=== PATIENT | female | born 1990 | race Caucasian/White ===

== ENCOUNTER 2019-01-05 17:58 | Inpatient (IN) ==
[2019-01-05] MEDS ORDERED: BRETHINE SUBQ PRN (18:01)
[2019-01-05] MEDS ORDERED: AMBIEN PO PRN (18:01)
[2019-01-05] MEDS ORDERED: PEPCID PO ONE (18:01)
[2019-01-05] MEDS ORDERED: STADOL IV PRN ×4 (18:01→18:45)
[2019-01-05] MEDS ORDERED: TYLENOL PO PRN (18:01)
[2019-01-05] MEDS ORDERED: KEFZOL 1 GM/D5W 1 GM/50 ML IVPB IV PRN (18:01)
[2019-01-05] MEDS ORDERED: PEPCID PO PRN (18:01)
[2019-01-05] MEDS ORDERED: ZOFRAN IV PRN (18:01)
[2019-01-05] MEDS ORDERED: LR 1,000 ML IV ONE (18:01)
[2019-01-05] MEDS ORDERED: REGLAN PO ONE (18:01)
[2019-01-05] MEDS ORDERED: PEPCID IV PRN (18:01)
[2019-01-05] MEDS ORDERED: FENTANYL IV PRN (18:17)
[2019-01-05 18:42] LABS: UR AMPHETAMINES QUAL NONE DETECTED (NONE DETECT); UR BARBITUATES QUAL NONE DETECTED (NONE DETECT); UR BENZODIAZEPIN QUAL NONE DETECTED (NONE DETECT); UR CANNABINOIDS QUAL NONE DETECTED (NONE DETECT); UR COCAINE QUAL NONE DETECTED (NONE DETECT); UR METHADONE QUAL NONE DETECTED (NONE DETECT); UR METHAMPHETAMINE QUAL NONE DETECTED (NONE DETECT); UR OPIATES QUAL NONE DETECTED (NONE DETECT); UR OXYCODONE QUAL NONE DETECTED (NONE DETECT); UR PCP QUAL NONE DETECTED (NONE DETECT); UR PROPOXYPHENE QUAL NONE DETECTED (NONE DETECT); UR TCA QUAL NONE DETECTED (NONE DETECT)
[2019-01-05 19:10] LABS: BASO# 0.02 X1000 (0.0-0.2); BASO% 0.2 % (0.0-0.8); EOS% 0.8 % (0.0-10.0); HEMATOCRIT 29.9 % (37.0-47.0); HEMOGLOBIN 9.5 g/dL (12.0-16.0); IMM GRAN# 0.07 X1000 (0.0-0.04); IMM GRAN% 0.6 % (0.0-0.5); LYMPH# 2.41 X1000 (1.2-3.4); LYMPH% 19.6 % (20.5-51.1); MCH 27.6 PG (27-31); MCHC 31.8 g/dL (33-37); MCV 86.9 FL (81-99); MONO# 1.02 X1000 (0.11-0.59); MONO% 8.3 % (1.7-9.3); NEUT# 8.68 X1000 (1.4-6.5); NEUT% 70.5 % (42.2-75.2); PLT 145 X1000 (130-400); RBC 3.44 XMIL (4.2-5.4); RDW 13.8 % (11.5-14.5)
[2019-01-05 19:47] LABS: URINE SOURCE VOIDED
[2019-01-05 19:59] LABS: BILIRUBIN URINE NEGATIVE (NEGATIVE); BLOOD URINE 1+ (NEGATIVE); CLARITY VERY CLOUDY (CLEAR); COLOR YELLOW; GLUCOSE URINE NEGATIVE (NEGATIVE); KETONE URINE TRACE mg/dL (NEGATIVE); LEUKOCYTES URINE 2+ (NEGATIVE); NITRITE URINE NEGATIVE (NEGATIVE); PH URINE 6.5; PROTEIN URINE TRACE mg/dL (NEGATIVE); UROBILINOGEN URINE 1 mg/dL
[2019-01-05] MEDS ORDERED: CYTOTEC PO SCH (20:00)
[2019-01-05] MEDS ORDERED: PITOCIN 30 UNITS/NS 30 UNIT/500 ML IV.SOLN IV SCH (20:00)
[2019-01-05 20:29] LABS: LARGE PLATELETS 1+; LYMPHS 20 % (21-51); MONO 5 % (1-9); SEGS 72 % (42-75)
[2019-01-05] MEDS ORDERED: NAROPIN 0.2% INJ ONE (21:01)
[2019-01-05] MEDS ORDERED: MINERAL OIL MISC ONE (21:01)
[2019-01-05] MEDS ORDERED: XYLOCAINE-MPF 1% INJ ONE (21:02)
[2019-01-05] MEDS ORDERED: FENTANYL-BUPIV-NS 2 MCG-0.1% 200 ML EPIDURAL SCH (22:30)
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
[2019-01-06] MEDS ORDERED: PHENERGAN IV ONE (05:06)
[2019-01-06] MEDS ORDERED: SODIUM CHLORIDE 0.9% INJ ONE (05:06)
--- NOTE | 2019-01-06 06:35 | OB/GYN PROGRESS NOTE ---
Progress Note OB - . Patient Problems: Current Active Problems Problem Status Onset Elective induction of labor planned Acute OB Progress Note: Vital Signs - 24 hr 01/05/19 20:00 01/06/19 00:00 01/06/19 03:54 Temperature 96.9 F L 97.0 F L 97.2 F L Pulse Rate 80 71 68 Respiratory Rate 18 18 18 Blood Pressure 111/61 108/61 105/59 Laboratory Results - last 24 hr 01/05/19 01/05/19 01/05/19 18:15 18:23 18:25 WBC RBC Hgb Hct MCV MCH MCHC RDW Std Deviation Plt Count MPV Immature Gran % (Auto) Neut % (Auto) Lymph % (Auto) [place] % (Auto) Eos % (Auto) Baso % (Auto) Immature Gran # (Auto) Neut # (Auto) Lymph # (Auto) [place] # (Auto) Eos # (Auto) Baso # (Auto) Segmented Neutrophils Lymphocytes Monocytes Atypical Lymphocytes Large Platelets Urine Source VOIDED Urine Color YELLOW Urine Clarity VERY CLOUDY A Urine pH 6.5 Ur Specific [place] 1.020 Urine Protein TRACE A Urine Ketones TRACE Urine Blood 1+ A Urine Nitrite NEGATIVE Urine Bilirubin NEGATIVE Urine Urobilinogen 1 Urine WBC 2+ A Urine Glucose NEGATIVE Urine Opiates Screen NONE DETECTED Ur Oxycodone Screen NONE DETECTED Urine Methadone Screen NONE DETECTED U Propoxyphene Qual NONE DETECTED Ur Barbituates Screen NONE DETECTED Ur Tricyclics Screen NONE DETECTED Ur Phencyclidine Scrn NONE DETECTED Ur Amphetamines Screen NONE DETECTED U Methamphetamines Scrn NONE DETECTED U Benzodiazepines Scrn NONE DETECTED Urine Cocaine Screen NONE DETECTED U Cannabinoids Screen NONE DETECTED RPR NON-REACTIVE Blood Type Antibody Screen 01/05/19 01/05/19 18:25 18:25 WBC 12.30 H RBC 3.44 L Hgb 9.5 L Hct 29.9 L MCV 86.9 MCH 27.6 MCHC 31.8 L RDW Std Deviation 13.8 Plt Count 145 MPV Not Reportable Immature Gran % (Auto) 0.6 H Neut % (Auto) 70.5 Lymph % (Auto) 19.6 L [place] % (Auto) 8.3 Eos % (Auto) 0.8 Baso % (Auto) 0.2 Immature Gran # (Auto) 0.07 H Neut # (Auto) 8.68 H Lymph # (Auto) 2.41 [place] # (Auto) 1.02 H Eos # (Auto) 0.10 Baso # (Auto) 0.02 Segmented Neutrophils 72 Lymphocytes 20 L Monocytes 5 Atypical Lymphocytes 3.0 Large Platelets 1+ Urine Source Urine Color Urine Clarity Urine pH Ur Specific [place] Urine Protein Urine Ketones Urine Blood Urine Nitrite Urine Bilirubin Urine Urobilinogen Urine WBC Urine Glucose Urine Opiates Screen Ur Oxycodone Screen Urine Methadone Screen U Propoxyphene Qual Ur Barbituates Screen Ur Tricyclics Screen Ur Phencyclidine Scrn Ur Amphetamines Screen U Methamphetamines Scrn U Benzodiazepines Scrn Urine Cocaine Screen U Cannabinoids Screen RPR Blood Type O POSITIVE Antibody Screen NEGATIVE S: Patient resting comfortably O: SVE at 0500: 4/90/-1 FHTs: 150s, moderate variability, accels present; 1 late decel noted at about 0535 [place]: contractions q2-5 min A&P: 28yo G2, P1-0-0-1 at 39 weeks and 2 day with: 1. Term -eIOL - well being: Cat 1 tracings now -Anticipate 2. Anemia (hemoglobin 9.5, hematocrit 29.9). 3. Rubella non-immune. -MMR to be given . 4. Patient desires permanent sterilization.
[2019-01-06] MEDS ORDERED: AMPICILLIN 2 GM/NS 2 GM/100 ML IVPB IV ONE (07:35)
[2019-01-06] MEDS ORDERED: CLINDAMYCIN 900 MG/D5W 900 MG/50 ML IVPB IV ONE (07:36)
[2019-01-06] MEDS ORDERED: NAROPIN 0.5% ONE (07:43)
[2019-01-06] MEDS ORDERED: PITOCIN 30 UNITS/NS 30 UNIT/500 ML IV.SOLN IV SCH (08:00)
[2019-01-06] MEDS: PITOCIN 30 UNITS/NS 30 UNIT/500 ML IV.SOLN IV SCH ×2 (09:56→12:49)
[2019-01-06] MEDS ORDERED: BENADRYL PO PRN (10:22)
[2019-01-06] MEDS ORDERED: BENADRYL IV PRN (10:22)
[2019-01-06] MEDS ORDERED: M-M-R II VACCINE SUBQ ONE (10:22)
[2019-01-06] MEDS ORDERED: PERI MEDS (DERMOPLAST/NUPERCAINAL/TUCKS) MISC PRN (10:22)
[2019-01-06] MEDS ORDERED: BOOSTRIX VACCINE IM ONE (10:22)
[2019-01-06] MEDS ORDERED: AMBIEN PO PRN (10:22)
[2019-01-06] MEDS ORDERED: MINERAL OIL PO PRN (10:22)
[2019-01-06] MEDS ORDERED: XYLOCAINE-MPF 1% INJ PRN (10:22)
[2019-01-06] MEDS ORDERED: CYTOTEC PO PRN (10:22)
[2019-01-06] MEDS ORDERED: NORCO-10 PO PRN (10:22)
[2019-01-06] MEDS ORDERED: ATARAX PO PRN (10:22)
[2019-01-06] MEDS ORDERED: PITOCIN IM PRN (10:22)
[2019-01-06] MEDS ORDERED: HYDROXYZINE IM PRN (10:22)
[2019-01-06] MEDS ORDERED: NORCO-5 PO PRN (10:22)
[2019-01-06] MEDS ORDERED: PITOCIN 20 UNITS/NS 20 UNITS/1,000 ML IV.SOLN IV SCH (10:30)
--- NOTE | 2019-01-06 11:47 | OPERATIVE NOTE ---
PROCEDURE DATE: 01/06/2019 VAGINAL DELIVERY NOTE: Patient progressed to complete and pushing and had spontaneous vaginal delivery of a female infant, 6 pounds 8 ounces with Apgars of 9 and 10 at 0954 on 01/06/2019 over a second-degree midline episiotomy and periurethral lacerations on the left and right sides. The placenta was delivered intact with 3-vessel cord. The cord blood sample was obtained at this time. The second-degree midline episiotomy was repaired with 2-0 and 3-0 chromic. The periurethral lacerations were repaired with 3-0 Vicryl in a running fashion times 1 on each side. ESTIMATED BLOOD LOSS: 250 mL. ANESTHESIA: Epidural. COUNTS: All counts were correct times 2. cc: Alfred White III, MD
[2019-01-06] MEDS: MOTRIN PO PRN ×2 (12:48→20:52)
[2019-01-06] MEDS ORDERED: PERICOLACE PO SCH (21:00)
[2019-01-07] MEDS: PITOCIN 30 UNITS/NS 30 UNIT/500 ML IV.SOLN IV SCH (00:02)
[2019-01-07 06:35] LABS: BASO# 0.03 X1000 (0.0-0.2); BASO% 0.2 % (0.0-0.8); EOS# 0.17 X1000 (0.0-0.7); EOS% 0.9 % (0.0-10.0); HEMATOCRIT 30.6 % (37.0-47.0); HEMOGLOBIN 9.6 g/dL (12.0-16.0); IMM GRAN# 0.12 X1000 (0.0-0.04); IMM GRAN% 0.6 % (0.0-0.5); LYMPH% 16.3 % (20.5-51.1); MCH 27.6 PG (27-31); MCHC 31.4 g/dL (33-37); MCV 87.9 FL (81-99); MONO# 1.05 X1000 (0.11-0.59); MONO% 5.3 % (1.7-9.3); MPV 12.3 FL (7.4-10.4); NEUT% 76.7 % (42.2-75.2); PLT 150 X1000 (130-400); RBC 3.48 XMIL (4.2-5.4); RDW 14.1 % (11.5-14.5); WBC 19.67 X1000 (4.8-10.8)
[2019-01-07] MEDS: MOTRIN PO PRN ×2 (06:38→16:32)
--- NOTE | 2019-01-07 09:29 | OB/GYN PROGRESS NOTE ---
Progress Note OB - . Patient Problems: Current Active Problems Problem Status Onset (spontaneous vaginal delivery) Acute OB Progress Note: Vital Signs - 24 hr 01/06/19 10:15 01/06/19 10:25 01/06/19 10:35 Temperature 98.5 F Pulse Rate 79 96 H 74 Respiratory Rate 20 20 18 Blood Pressure 113/57 Blood Pressure [Right Arm] 113/57 108/56 105/58 O2 Sat by Pulse Oximetry 100 100 97 01/06/19 10:45 01/06/19 10:55 01/06/19 11:05 Temperature Pulse Rate 78 67 71 Respiratory Rate 20 20 20 Blood Pressure Blood Pressure [Right Arm] 110/62 109/62 105/69 O2 Sat by Pulse Oximetry 98 96 100 01/06/19 11:15 01/06/19 14:30 01/06/19 15:30 Temperature 97.8 F 97.2 F L Pulse Rate 77 84 80 Respiratory Rate 20 20 20 Blood Pressure 111/66 99/55 107/54 Blood Pressure [Right Arm] 111/66 O2 Sat by Pulse Oximetry 97 97 98 01/06/19 20:15 01/06/19 23:55 01/07/19 08:16 Temperature 96.7 F L 96.7 F L 96.5 F L Pulse Rate 78 87 88 Respiratory Rate 18 18 16 Blood Pressure 104/56 103/55 117/55 Blood Pressure [Right Arm] O2 Sat by Pulse Oximetry 99 95 98 Laboratory Results - last 24 hr 01/07/19 06:18 WBC 19.67 H RBC 3.48 L Hgb 9.6 L Hct 30.6 L MCV 87.9 MCH 27.6 MCHC 31.4 L RDW Std Deviation 14.1 Plt Count 150 MPV 12.3 H Immature Gran % (Auto) 0.6 H Neut % (Auto) 76.7 H Lymph % (Auto) 16.3 L [place] % (Auto) 5.3 Eos % (Auto) 0.9 Baso % (Auto) 0.2 Immature Gran # (Auto) 0.12 H Neut # (Auto) 15.10 H Lymph # (Auto) 3.20 [place] # (Auto) 1.05 H Eos # (Auto) 0.17 Baso # (Auto) 0.03 S: Patient without complaints. Denied fever, chills, N/V, SOB, or chest pain. Some abdominal cramping, but minimal and controlled. Voiding without difficulty. Lochia decreasing; scant. Breast-feeding without difficulty. Desires permanent sterilization. O: Gen: NAD CV: RRR Pulm: CTAB; no rhonchi, wheezing, or rales Abd: soft, non-tender to palpation; non-distended; fundus firm and below umbilicus Ext: no LE TTP A&P: 28yo s/p at 39 weeks and 2 day: 1. PPD#1- No concerns -Cont. routine care 2. Anemia -Cont vitamin and iron 3. Rubella non-immune -MMR booster 4. Patient desires permanent sterilization.
[2019-01-08] MEDS: MOTRIN PO PRN ×2 (02:30→10:48)
[2019-01-08 08:03] VITALS: BP 111/75
--- NOTE | 2019-01-08 09:36 | DISCHARGE SUMMARY ---
ADMISSION DATE: 01/05/2019 DISCHARGE DATE: 01/08/2019 ADMISSION DIAGNOSIS: A 28-year-old white female, IUP 39 and 1/7 weeks for elective induction of labor. Obstetrical course unremarkable. The patient has expressed desire for permanent sterilization. FINAL DIAGNOSIS: A 28-year-old white female, IUP 39 and 1/7 weeks for elective induction of labor. Obstetrical course unremarkable. The patient has expressed desire for permanent sterilization with spontaneous vaginal delivery of a female infant, 6 pounds 8 ounces with Apgars of 9 and 10 at 0954 on 01/06/2019 over a second-degree midline episiotomy. PROCEDURES: Spontaneous vaginal delivery. BRIEF HISTORY: Patient is a 28-year-old white female, G2, P1, at 39 and 1/7ths weeks by a 20 week ultrasound scan who presents for elective induction of labor. No obstetrical problems during her course and she did express a desire for permanent sterilization. PAST MEDICAL HISTORY: Significant for anemia. PAST SURGICAL HISTORY: None. PAST OB HISTORY: G2, P1 spontaneous vaginal delivery x1. 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 Denies history of abnormal Paps. MEDICATIONS: Iron tablets and vitamins. ALLERGIES: To morphine. SOCIAL HISTORY: Denies tobacco use, and denies alcohol use. REVIEW OF SYSTEMS: Unremarkable. LABS: Rh positive. Rubella nonimmune. Group B strep culture was negative. PHYSICAL EXAMINATION: Vital Signs: Blood pressure normal. General: No apparent distress. CV: Regular rate and rhythm. Pulmonary: Clear to auscultations. Abdomen: Gravid, nontender. Pelvic Exam: Her cervix was noted to be 3 cm dilated, thick and high. heart tones were in the 120s with moderate variability, accelerations present. ASSESSMENT AND PLAN: IUP at 39 and 1/7ths weeks for elective induction of labor. The patient is group B strep negative. Rubella nonimmune. She will receive MMR after delivery and patient desires permanent sterilization. HOSPITAL COURSE: The patient was placed in the hospital on the to prepare her cervix for labor and then on 01/06, she was moving into active labor and had artificial rupture of membranes with clear fluid. She did have a maternal temp during her intrapartum course and was given ampicillin and clindamycin IV. The patient then progressed to complete pushing and had spontaneous vaginal delivery of a female 6 pounds 8 ounces with Apgars of 9 and 10 at 0954 on 01/06/2019 over a second-degree midline episiotomy and periurethral laceration. Placenta delivered intact with 3 vessel cord and second-degree midline episiotomy and periurethral laceration repaired in usual fashion. The patient did well post . Her hemoglobin day 1 was 9.6 and hemoglobin was 30.6. She had stable vital signs, was afebrile and on day #2, it was felt that she could be discharged home. DISCHARGE PLANS: Patient is to be discharged home. Will follow up in 4 weeks to schedule tubal ligation. She was instructed on pelvic rest for the next 6 weeks. Patient also instructed to call for temperature greater than 101, heavy vaginal bleeding, or severe abdominal pain out of the ordinary. The patient is contemplating breast-feeding, so she will continue her vitamins and she was given prescription for Enigma 5, Colace, Motrin, and iron sulfate. cc: Alfred White III, MD
== END 2019-01-08 13:00 | disposition home or self-care (01) | DRG 806 ==
LOC: P.LD 17:58
PROVIDERS: ADMIT Obstetrics & Gynecology Obstetrics; ATTEND Obstetrics & Gynecology
CPT/HCPCS: 59025; 80104; 80301; 80305; 81003; 85025; 86592; 86850; 86900; 86901; 90707; A9270; G0431; G0434; G0477; J0290; J0595; J2550; J2590; J2795; J7120